=== PATIENT | female | born 1970 | race American Indian/Alaskan Native ===

== ENCOUNTER 2018-04-19 17:58 | Emergency (ER) | payer BC ==
[2018-04-19 17:58] VITALS: BMI 23.6
[2018-04-19 18:06] VITALS: BP 148/89; PULSE 72; RESP 18; TEMP 98; O2SAT 100
--- NOTE | 2018-04-19 18:59 | C.PDOC ---
History Of Present Illness 47 year old female, whose PMHx includes anxiety, presents to the ED for evaluation of chest pain which began a few days ago. She describes her symptoms as burning sensation. Currently in the ED, patient states her pain has resolved. She denies fever, chills. Time Seen by Provider: 04/19/18 18:22 Chief Complaint (Nursing): Chest Pain History Per: Patient History/Exam Limitations: no limitations Onset/Duration Of Symptoms: Days Current Symptoms Are (Timing): Gone Quality: Burning, "Pain" Additional History Per: Patient Past Medical History Reviewed: Historical Data, Nursing Documentation, Vital Signs Vital Signs: Last Vital Signs Temp 98 F 04/19/18 18:03 Pulse 72 04/19/18 18:03 Resp 18 04/19/18 18:03 BP 148/89 04/19/18 18:03 Pulse Ox 100 04/19/18 20:07 Family History: States: Unknown Family Hx - Social History Hx Alcohol Use: No Hx Substance Use: No - Immunization History Hx Tetanus Toxoid Vaccination: No Hx Influenza Vaccination: No Hx Pneumococcal Vaccination: No Review Of Systems Constitutional: Negative for: Fever, Chills Cardiovascular: Positive for: Chest Pain Physical Exam - Physical Exam Appears: Non-toxic, No Acute Distress Skin: Normal Color, Warm, Dry Head: Atraumatic, Normacephalic Eye(s): bilateral: Normal Inspection Oral Mucosa: Moist Neck: Supple Chest: Symmetrical, No Deformity, No Tenderness Cardiovascular: Rhythm Regular, No Murmur Respiratory: Normal Breath Sounds, No Rales, No Rhonchi, No Wheezing Extremity: Normal ROM, Capillary Refill (less than 2 seconds ) Neurological/Psych: Oriented x3, Normal Speech, Normal Cognition ED Course And Treatment ECG: Interpreted By Me, Viewed By Me ECG Rhythm: Sinus Rhythm Interpretation Of ECG: Normal Sinus Rhythm at rate 72bpm. No ST/T wave changes. Rate From EC O2 Sat by Pulse Oximetry: 100 (on RA) Pulse Ox Interpretation: Normal Medical Decision Making Medical Decision Making: Progress: Immediately upon my assessment, patient is asking to be discharged. This patient is choosing to leave against medical advice. I have personally explained to the patient that choosing to do so may result in permanent bodily harm or . I have discussed at great length that without further evaluation and monitoring there may be unforeseen circumstances and/or deterioration causing permanent bodily harm or as a result of their choice. The patient is alert, oriented, and shows the mental capacity to make clear decisions regarding the patients health care at this time. The patient continues to wish to leave against medical advice. In light of the patients decision to leave AMA, follow-up has been arranged and the patient is aware of the importance of following up as instructed. The patient has been advised that they should return to the ED immediately if they change their mind at any time, or if their condition begins to change or worsen in any way. Disposition - Disposition Referrals: Cuba Rodriguez MD [Staff Provider] - Disposition: HOME/ ROUTINE Disposition Time: 08:00 Condition: UNKNOWN Instructions: Chest Pain, Leaving Against Medical Advice Forms: [employer] (Bengali) - Clinical Impression Clinical Impression: Chest pain, Left against medical advice - Scribe Statement The provider has reviewed the documentation as recorded by the Scribe (Elaina Costello) Provider Attestation: All medical record entries made by the Scribe were at my direction and personally dictated by me. I have reviewed the chart and agree that the record accurately reflects my personal performance of the history, physical exam, medical decision making, and the department course for this patient. I have also personally directed, reviewed, and agree with the discharge instructions and disposition.
--- NOTE | 2018-04-20 17:16 | CARD ---
APPROVED REPORT Date of service: 04/19/2018 EKG Measurement Heart [id number] <Conclusion> Normal sinus rhythm Normal ECG
== END 2018-04-19 18:51 | disposition home or self-care (01) ==
LOC: C.ER 17:58
DX: R07.9 Chest pain, unspecified (principal)